=== PATIENT | male | born 1995 | race Caucasian/White ===

== ENCOUNTER 2022-03-29 23:26 | Emergency (ER) | payer OTHER ==
[2022-03-29 23:27] VITALS: TEMP 97.6
[2022-03-30 00:01] LABS: BASO % 0.2 % (0.0-2.0); EOS # 0.4 K/mm3 (0.0-0.7); EOS % 3.8 % (0.0-4.0); GRAN # 9.5 K/mm3 (1.4-6.5); GRAN % 82.3 % (42.2-75.2); HEMATOCRIT 43.5 % (42.0-52.0); HEMOGLOBIN 14.9 g/dl (13.5-18.0); LYMPH # 0.9 K/mm3 (1.2-3.4); LYMPH % 7.7 % (20.0-51.0); MEAN CELL VOLUME 87 fl (80.0-100.0); MEAN CORPUSCULAR HEMOGLOBIN 30 pg (27-31); MEAN CORPUSCULAR HGB CONC 34 g/dl (33.0-37.0); MEAN PLATELET VOLUME 10.2 fl (7.4-10.4); MONO # 0.7 K/mm3 (0.1-0.6); MONO % 5.7 % (1.7-9.3); RED BLOOD COUNT 5.02 M/mm3 (4.20-5.60); REDCELL DISTRIBUTION WIDTH-CV 12.9 % (11.5-14.5)
[2022-03-30 00:13] LABS: ALANINE AMINOTRANSFERASE 22 U/L (0-55); ALCOHOL(ethanol),MEDICAL < 10 mg/dL (0-10); ALKALINE PHOSPHATASE 74 U/L (40-150); ANION GAP 10 mmol/L (7-16); AST,SGOT 39 U/L (5-34); BILIRUBIN,TOTAL 0.4 mg/dL (0.2-1.2); BLOOD UREA NITROGEN 9 mg/dL (9-21); CALCIUM 9.5 mg/dL (8.4-10.2); CARBON DIOXIDE 23 mmol/L (22-29); CHLORIDE 105 mmol/L (98-107); CREATININE, serum 0.92 mg/dL (0.72-1.25); GLUCOSE 140 mg/dL (70-99); POTASSIUM 4.8 mmol/L (3.5-4.5); SODIUM 138 mmol/L (136-145); TOTAL PROTEIN 7.9 gm/dL (6.2-8.1)
[2022-03-30 01:07] LABS: TRICYCLIC ANTIDEPRESS URINE NEGATIVE
[2022-03-30 01:33] VITALS: BP 130/89; PULSE 67
[2022-04-08] MEDS ORDERED: BACTRIM DS 8001 TAB PO (11:43)
[2022-04-08] MEDS ORDERED: CEPHALEXIN500 M1 PO (11:43)
== END 2022-03-30 01:35 | disposition home or self-care (01) ==
LOC: COL.ER 23:26
PROVIDERS: Emergency Medicine
DX: S06.9X9A Unspecified intracranial injury with loss of consciousness of unspecified duration, initial encounter (principal); S02.40FA Zygomatic fracture, left side, initial encounter for closed fracture; S00.03XA Contusion of scalp, initial encounter; S21.212A Laceration without foreign body of left back wall of thorax without penetration into thoracic cavity, initial encounter; S46.322A Laceration of muscle, fascia and tendon of triceps, left arm, initial encounter; R10.12 Left upper quadrant pain; Z23 Encounter for immunization; Y04.8XXA Assault by other bodily force, initial encounter
CPT/HCPCS: J3010; J7030; Q9967